=== PATIENT | female | born 1960 | race Caucasian/White ===

== ENCOUNTER 2022-12-30 18:25 | Inpatient (IN) | payer OTHER ==
[~2022-12-30] VITALS: Ht 162.6 cm; Wt 90.7 kg
[2022-12-30 19:06] VITALS: BP 130/66
--- NOTE | 2022-12-30 19:13 | NUR ---
PATIENT WHEEL CHAIR ASSIST TO BED 06
[2022-12-30] MEDS ORDERED: cefTRIAXone 1,000 MG in DEXT 5% MINI-BAG PLUS 50 ML IV ONE (19:15)
[2022-12-30] MEDS ORDERED: NACL 0.9% 2,000 ML IV SCH (19:15)
--- NOTE | 2022-12-30 19:25 | NUR ---
Assumed care of pt. Pt sitting high-fowlers with no distress. Pt c/o syncopal episode x 2. C/O N/V AND FEVER. DENIES DIARRHEA. +HEMATOMA NOTED TO OCCIPITAL. PER PT, HEMATOMA IS FROM FALL. PT THINKS SHE MAY HAVE LOSS CONCIOUSNESS. A/O X 4. NO SOB OR C/O COUGH. PT C/O RLQ ABD PAIN. PT STATED, PAIN IS DUE TO HER FALL. FAMILY WITH PT AT .
--- NOTE | 2022-12-30 19:54 | NUR ---
Dr. Vaughn examining patient.
[2022-12-30] MEDS ORDERED: MORPHINE SULFATE 4 MG/ML SYR IVP ONE (20:00)
--- NOTE | 2022-12-30 20:01 | NUR ---
CXR WAS DONE AT BS. COVID AND FLU A&B AND BLOOD LABS WITH CULTURES SENT. IV ACCESS WAS ESTABLISHED. EVALUATED PT AT BS. PT ATTEMPTED TO OBTAIN UA SAMPLE. PT ONLY ABLE TO PRODUCE A MINUTE AMOUT OF URINE.
[2022-12-30 20:11] LABS: HEMOGLOBIN 12.6 g/dL (12.0-16.0); MEAN CORPUSCULAR HEMOGLOBIN 29 pg (27-31); MEAN CORPUSCULAR HGB CONC 34 g/dL (33-37); MEAN CORPUSCULAR VOLUME 85.6 fL (80-94); PLATELET COUNT (AUTO) 237 K/uL (140-450); RED BLOOD CELL COUNT(AUTO) 4.33 MIL/uL (4.20-5.40); RED CELL DISTRIBUTION WIDTH 13.4 % (11.6-13.7); WHITE BLOOD COUNT (AUTO) 21.4 K/uL (4.8-10.8)
--- NOTE | 2022-12-30 20:14 | NUR ---
POC URINE DIP PERFORMED. RESULTS WERE GIVEN TO
[2022-12-30] MEDS ORDERED: cefTRIAXone 1,000 MG VIAL ONE (20:17)
--- NOTE | 2022-12-30 20:18 | NUR ---
PT TAKEN TO RADIOLOGY
[2022-12-30 20:19] LABS: ALBUMIN 3.3 g/dL (3.4-5.0); ANION GAP 16.7 (8-16); CREATININE 1.1 mg/dL (0.6-1.3); POTASSIUM 3.7 mmol/L (3.5-5.1); TOTAL BILIRUBIN 1.1 mg/dL (0.0-1.0)
--- NOTE | 2022-12-30 20:19 | NUR ---
PT TAKEN OFF UNIT TO CT. WILL MEDICATE PT WHEN THE PT RETURNS.
[2022-12-30 20:39] LABS: BASOPHILS % (MANUAL) 0 % (0-2); EOSINOPHILS % (MANUAL) 0 % (0-4); LYMPHOCYTES % (MANUAL) 12 % (20-46); MONOCYTES % (MANUAL) 10 % (5-12)
--- NOTE | 2022-12-30 20:39 | NUR ---
PT RETURN FROM RADIOLOGY
--- NOTE | 2022-12-30 21:15 | NUR ---
PT SLEEPING WITHOUT DISTRESS. MD TO ADMIT PT DUE TO SYNCOPAL EPISODES AND UTI. PT CURRENTLY AWAITING BED ADMISSION/BED ASSIGNMENT.
[2022-12-30] MEDS ORDERED: NACL 0.9% 1,000 ML IV ONE (21:20)
[2022-12-30] MEDS ORDERED: ONDANSETRON 4 MG/2 ML VIAL IVP PRN (21:20)
--- NOTE | 2022-12-30 21:30 | NUR ---
INFORMED PT THAT SHE WOULD BE ADMITTED. HE INFORMED HER THAT SHE HAS A FRACTURE ON HER COCCYX THAT SHOULD HEAL.
--- NOTE | 2022-12-30 21:38 | NUR ---
CALLED REPORT TO CAROLE. PT TO GO TO ROOM 108-B. COMPLETE REPORT PROVIDED. PT IN STATUS STABLE.
--- NOTE | 2022-12-30 21:48 | NUR ---
PT TAKEN TO THE FLOOR BY NICANOR ESCORTED BY RN AND EMT. PT TAKEN IN STABLE CONDITION. ACLS PROTOCOL IN PLACE.
[2022-12-30 22:00] VITALS: BP 147/60
--- NOTE | 2022-12-30 22:30 | NUR ---
RECEIVED REPORT FROM ER NURSE SUDHEER FOR CONTINUITY OF CARE. PATIENT IS A&O X4. PATIENT IS ON NC 2L, BREATHING IS NORMAL WITH SYMMETRICAL RISE AND FALL OF CHEST. IV IS A 20G R HAND, RUNNING NS AT 100. PATIENT ARRIVED ON UNIT AND AMBULATED WITH ASSISTANCE TO BATHROOM; GAIT IS UNSTEADY. PATIENT IS SITTING IN HIGH-FOWLERS POSITION. BED IS IN LOWEST POSITION, WHEELS LOCKED, CALL LIGHT IN PLACE. WILL CONTINUE TO OBSERVE PATIENT.
[2022-12-30 22:40] LABS: APPEARANCE,URINE CLEAR (CLEAR); BILIRUBIN,URINE NEGATIVE (NEGATIVE); BLOOD, URINE TRACE-I (NEGATIVE); COLOR,URINE YELLOW (YELLOW); LEUKOCYTE ESTERASE ,URINE NEGATIVE (NEGATIVE); NITRITE, URINE POSITIVE (NEGATIVE); UGLUCOSE 3+ (NEGATIVE)
[2022-12-30 22:43] LABS: RBC,URINE 11-20 (MOD) /HPF (0-5)
[2022-12-30] MEDS ORDERED: INSULIN LISPRO SLIDING SCALE 100 UNITS/ML VIAL SUBQ PRN (23:10)
--- NOTE | 2022-12-31 02:00 | NUR ---
PATIENT WAS COOPERATIVE DURING ADMISSION. PATIENT HAS CALLED FOR ASSISTANCE TO GO TO THE BATHROOM TWICE SINCE ADMISSION. TOOK PHOTO OF HEMATOMA ON POSTERIOR SIDE OF HEAD. PATIENT IS RESTING COMFORTABLE; LYING IN SEMI-FOWLERS POSITION. WILL CONTINUE TO OBSERVE PATIENT.
[2022-12-31 04:00] VITALS: BP 131/39
[2022-12-31] MEDS: HYDROcodone/APAP 5/325 MG 1 TAB TAB PO PRN ×3 (04:03→19:54)
--- NOTE | 2022-12-31 05:15 | NUR ---
PATIENT WAS ASSISTED TO BATHROOM AGAIN, AND STATED SHE WAS FEELING A LOT OF PAIN. ASKED PATIENT IF SHE NEEDED ANY PAIN MEDICATION. PATIENT STATED YES. PATIENT STATED HER PAIN WAS 6/10. CHECKED PATIENT'S VITALS AND CHART; NORCO WAS APPROPRIATE TO ADMINISTER. MEDICATION ADMINISTERED SUCCESSFULLY WITHOUT ANY ISSUES WITH SWALLOWING. REASSESSED PATIENT 30 MINUTES LATER; PATIENT WAS SLEEPING. WILL CONTINUE TO OBSERVE PATIENT.
[2022-12-31 06:52] LABS: BASOPHILS % (AUTO) 0.1 % (0.0-2.0); EOSINOPHILS % (AUTO) 0.1 % (0.0-4.0); HEMATOCRIT 34.7 % (36-48); HEMOGLOBIN 11.7 g/dL (12.0-16.0); LYMPHOCYTES # (AUTO) 2.3 K/uL (2.5-16.5); LYMPHOCYTES % (AUTO) 11.2 % (20.5-51.1); MEAN CORPUSCULAR HEMOGLOBIN 29 pg (27-31); MEAN CORPUSCULAR HGB CONC 34 g/dL (33-37); MEAN CORPUSCULAR VOLUME 85.9 fL (80-94); MONOCYTES # (AUTO) 1.5 K/uL (0.8-1.0); MONOCYTES % (AUTO) 7.4 % (1.7-9.3); NEUTROPHILS # (AUTO) 16.4 K/uL (1.8-7.7); NEUTROPHILS % (AUTO) 81.2 % (42.2-75.2); PLATELET COUNT (AUTO) 216 K/uL (140-450); RED BLOOD CELL COUNT(AUTO) 4.05 MIL/uL (4.20-5.40); RED CELL DISTRIBUTION WIDTH 13.6 % (11.6-13.7); WHITE BLOOD COUNT (AUTO) 20.1 K/uL (4.8-10.8)
--- NOTE | 2022-12-31 07:28 | NUR ---
ENDORSED TO DAY SHIFT NURSE DYLON FOR CONTINUITY OF CARE. PATIENT IS STABLE.
[2022-12-31] MEDS ORDERED: BLOOD GLUCOSE MONITORING 1 DEV DEV FS SCH (07:30)
--- NOTE | 2022-12-31 07:40 | NUR ---
GOT REPORT FROM THE NIGHT NURSE, PT AWAKE DISCUSSED POC. [id number]
[2022-12-31 08:00] VITALS: BP 126/60
[2022-12-31] MEDS ORDERED: DEXTROSE 50% 50 ML SYR IVP PRN (08:10)
[2022-12-31] MEDS: INSULIN LANTUS 100 UNITS/ML 10 ML VIAL SUBQ SCH (08:24)
[2022-12-31] MEDS: ENOXAPARIN 40 MG/0.4 ML SYR SUBQ SCH (08:25)
[2022-12-31 08:26] LABS: ANION GAP 15.5 (8-16); CARBON DIOXIDE 24.1 mmol/L (21-32); CREATININE 0.9 mg/dL (0.6-1.3); POTASSIUM 3.6 mmol/L (3.5-5.1)
--- NOTE | 2022-12-31 08:51 | NUR ---
PATIENT HAS BEEN SCREENED AND CATEGORIZED HIGH NUTRITION RISK. PATIENT WILL BE SEEN WITHIN 1-2 DAYS OF ADMISSION. 12/31/22-01/01/[address]
--- NOTE | 2022-12-31 08:54 | NUR ---
[facility] REFERRAL RECEIVED FOR UNCONTROLLED DIABETES ON 12/31/22. PATIENT WILL BE SEEN WITHIN 1-2 DAYS OF ADMISSION.
[2022-12-31] MEDS: INSULIN LISPRO SLIDING SCALE 100 UNITS/ML VIAL SUBQ PRN ×3 (11:55→20:06)
[2022-12-31] MEDS: BLOOD GLUCOSE MONITORING 1 DEV DEV FS SCH ×3 (11:58→20:14)
[2022-12-31 12:00] VITALS: BP 107/55
[2022-12-31] MEDS: INSULIN LISPRO 100 UNITS/ML VIAL SUBQ SCH ×2 (12:00→16:45)
--- NOTE | 2022-12-31 14:27 | NUR ---
ADMINISTERED PAIN MEDICATION FOR SEVERE PAIN 9/10 ON LOWER BACK RADIATING TO LEFT HIP.
--- NOTE | 2022-12-31 14:47 | NUR ---
12/31/22 RD INITIAL ASSESSMENT COMPLETED PLEASE REFER TO NUTRITION ASSESSMENT UNDER CARE ACTIVITY FOR ESTIMATED NUTRITIONAL NEEDS. 1. CONTINUE [facility] DIET TOLERATED AND WILL ADD SOFT TEXTURE TO MEALS PER PATIENT REQUEST. 2. RD ENCOURAGES PATIENT TO CONTINUE WITH WATCHING PORTION SIZES AND TO FOLLOW DIABETES HANDOUTS GIVEN ONCE SHE LEAVES THE HOSPITAL. 3. RD TO FOLLOW-UP 7 DAYS, LOW RISK JEFFERY TAPIA RD
[2022-12-31 16:00] VITALS: BP 104/44
--- NOTE | 2022-12-31 19:23 | NUR ---
got report to the night nurse,pt talking to the family visitors.[email or web address]
--- NOTE | 2022-12-31 19:30 | NUR ---
RECEIVED REPORT FROM DAY RN FOR CONTINUITY OF CARE. PT IS AWAKE, ALERT AND ORIENTED X 4, PT ON 2L NC. O2 SAT AT 98%. BREATHING EVEN AND UNLABORED, NO S/SX OF RESPIRATORY DISTRESS. ALL PRECAUTIONS IN PLACE. CALL LIGHT WITHIN REACH. POC DISCUSSED.WILL CONTINUE TO MONITOR.
[2022-12-31 20:00] VITALS: BP 132/57
--- NOTE | 2022-12-31 21:00 | NUR ---
BLOOD SUGAR WAS 286. INSULIN COVERAGE GIVEN.
[2023-01-01] VITALS: BP 128/41
--- NOTE | 2023-01-01 01:10 | NUR ---
Iv was pulled out. Restarted on R HAND. Successful after 1 attempts. Resumed current IVF of NS and regulated @ 100 per hour. Will observe for any signs of infiltration.
--- NOTE | 2023-01-01 02:30 | NUR ---
PT ASLEEP. BREATHING EVEN AND UNLABORED.NO S/SX OF DISTRESS NOTED. LISA LIGHT WITHIN REACH. WILL CONTINUE TO MONITOR.
[2023-01-01 04:00] VITALS: BP 131/62
[2023-01-01] MEDS: BLOOD GLUCOSE MONITORING 1 DEV DEV FS SCH ×4 (05:59→21:11)
[2023-01-01] MEDS: INSULIN LISPRO SLIDING SCALE 100 UNITS/ML VIAL SUBQ PRN ×4 (05:59→21:09)
--- NOTE | 2023-01-01 06:23 | NUR ---
PT IS STABLE. NO ACUTE EVENTS THROUGHOUT THE NIGHT. ALL NEEDS MET.NO S/SX OF DISTRESS AT THIS MOMENT. ALL PRECAUTIONS IN PLACE. CALL LIGHT WITHIN REACH. WILL CONTINUE TO MONITOR.
[2023-01-01] MEDS: INSULIN LISPRO 100 UNITS/ML VIAL SUBQ SCH ×3 (06:33→17:18)
--- NOTE | 2023-01-01 06:36 | NUR ---
BLOOD SUGAR 267.INSULIN GIVEN PER SLIDING SCALE.
--- NOTE | 2023-01-01 07:05 | NUR ---
RECEIVED REPORT FROM NIGHT NURSE HAN FOR CONTINUITY OF CARE. ALERT AND ORIENTED X 4. RESP. EVEN AND UNLABORED. IVF INFUSING WELL. NO C/O PAIN OR DISCOMFORT. CALL LIGHT KEPT WITHIN REACH. PT WILL MONITOR CLOSELY.
[2023-01-01 07:11] LABS: BASOPHILS % (AUTO) 0.2 % (0.0-2.0); EOSINOPHILS # (AUTO) 0.1 K/uL (0-0.4); EOSINOPHILS % (AUTO) 0.3 % (0.0-4.0); HEMATOCRIT 33.7 % (36-48); HEMOGLOBIN 11.3 g/dL (12.0-16.0); LYMPHOCYTES # (AUTO) 1.9 K/uL (2.5-16.5); LYMPHOCYTES % (AUTO) 10.7 % (20.5-51.1); MEAN CORPUSCULAR HEMOGLOBIN 29 pg (27-31); MEAN CORPUSCULAR HGB CONC 33 g/dL (33-37); MEAN CORPUSCULAR VOLUME 86.4 fL (80-94); MONOCYTES # (AUTO) 0.8 K/uL (0.8-1.0); MONOCYTES % (AUTO) 4.5 % (1.7-9.3); NEUTROPHILS % (AUTO) 84.3 % (42.2-75.2); PLATELET COUNT (AUTO) 209 K/uL (140-450); RED CELL DISTRIBUTION WIDTH 13.4 % (11.6-13.7); WHITE BLOOD COUNT (AUTO) 17.8 K/uL (4.8-10.8)
[2023-01-01] MEDS: HYDROcodone/APAP 5/325 MG 1 TAB TAB PO PRN ×2 (07:26→21:02)
[2023-01-01 07:27] LABS: ANION GAP 14.3 (8-16); CARBON DIOXIDE 23.5 mmol/L (21-32); CREATININE 0.8 mg/dL (0.6-1.3); POTASSIUM 3.8 mmol/L (3.5-5.1)
[2023-01-01 08:00] VITALS: BP 110/41
[2023-01-01] MEDS: INSULIN LANTUS 100 UNITS/ML 10 ML VIAL SUBQ SCH (08:15)
--- NOTE | 2023-01-01 08:15 | NUR ---
SEEN BY DR. TOLLIVER
[2023-01-01] MEDS: ENOXAPARIN 40 MG/0.4 ML SYR SUBQ SCH (08:16)
--- NOTE | 2023-01-01 08:16 | NUR ---
LANTUS 12 UNITS SQ AND LOVENOX SQ WAS GIVEN. TOLERATED WELL.
--- NOTE | 2023-01-01 08:30 | NUR ---
Patient's Plan of Care was discussed and reviewed with HUMIDIFIER OPERATOR: []
--- NOTE | 2023-01-01 09:43 | NUR ---
ROCEPHIN IV WAS GIVEN BY RAMONA ALCOCER. TOLERATED WELL.
--- NOTE | 2023-01-01 11:53 | NUR ---
BS CHECKED 294. SCHEDULED HUMALOG 4 UNITS AND 6 UNITS HUMALOG PER SLIDING SCALE WAS GIVEN. TOLERATED WELL.
[2023-01-01 12:00] VITALS: BP 135/51
[2023-01-01 16:00] VITALS: BP 128/53
--- NOTE | 2023-01-01 17:18 | NUR ---
BS CHECKED 238. SCHEDULED HUMALOG 4 UNITS AND 4 UNITS OF INSULIN PER SLIDING SCALE. TOLERATED WELL.
--- NOTE | 2023-01-01 19:05 | NUR ---
BEDSIDE REPORT GIVEN TO AIRCRAFT PNEUDRAUL[employer] SYSTEMS MECHANIC FOR CONTINUITY OF CARE. REMAINS STABLE.
--- NOTE | 2023-01-01 19:10 | NUR ---
RECEIVED REPORT FROM DAY RN FOR CONTINUITY OF CARE. PT IS AWAKE, ALERT AND ORIENTED X 4, PT ON ROOM AIR, O2 SAT AT 98%. BREATHING EVEN AND UNLABORED, NO S/SX OF RESPIRATORY DISTRESS. ALL PRECAUTIONS IN PLACE. CALL LIGHT WITHIN REACH. POC DISCUSSED.WILL CONTINUE TO MONITOR.
[2023-01-01 20:00] VITALS: BP 145/65
[2023-01-02] VITALS: BP 139/68
--- NOTE | 2023-01-02 01:30 | NUR ---
PT ASLEEP. BREATHING EVEN AND UNLABORED.NO S/SX OF DISTRESS NOTED. LISA LIGHT WITHIN REACH. WILL CONTINUE TO MONITOR.
[2023-01-02 04:00] VITALS: BP 139/58
[2023-01-02] MEDS: BLOOD GLUCOSE MONITORING 1 DEV DEV FS SCH ×2 (05:56→11:50)
--- NOTE | 2023-01-02 06:30 | NUR ---
BLOOD SUGAR 226.INSULIN GIVEN PER SLIDING SCALE.
[2023-01-02] MEDS: INSULIN LISPRO 100 UNITS/ML VIAL SUBQ SCH ×2 (06:32→11:54)
[2023-01-02] MEDS: INSULIN LISPRO SLIDING SCALE 100 UNITS/ML VIAL SUBQ PRN ×2 (06:34→11:55)
[2023-01-02 06:57] LABS: BASOPHILS % (AUTO) 0.3 % (0.0-2.0); EOSINOPHILS # (AUTO) 0.1 K/uL (0-0.4); EOSINOPHILS % (AUTO) 1.2 % (0.0-4.0); HEMATOCRIT 34.5 % (36-48); HEMOGLOBIN 11.8 g/dL (12.0-16.0); LYMPHOCYTES # (AUTO) 2.4 K/uL (2.5-16.5); LYMPHOCYTES % (AUTO) 22.1 % (20.5-51.1); MEAN CORPUSCULAR HEMOGLOBIN 29 pg (27-31); MEAN CORPUSCULAR HGB CONC 34 g/dL (33-37); MEAN CORPUSCULAR VOLUME 85.4 fL (80-94); MONOCYTES # (AUTO) 0.7 K/uL (0.8-1.0); MONOCYTES % (AUTO) 6.7 % (1.7-9.3); NEUTROPHILS # (AUTO) 7.6 K/uL (1.8-7.7); NEUTROPHILS % (AUTO) 69.7 % (42.2-75.2); PLATELET COUNT (AUTO) 265 K/uL (140-450); RED BLOOD CELL COUNT(AUTO) 4.04 MIL/uL (4.20-5.40); RED CELL DISTRIBUTION WIDTH 13.3 % (11.6-13.7); WHITE BLOOD COUNT (AUTO) 10.9 K/uL (4.8-10.8)
--- NOTE | 2023-01-02 07:00 | NUR ---
RECEIVED REPORT FROM NIGHT NURSE HAN FOR CONTINUITY OF CARE. ALERT AND ORIENTED X 4. RESP. EVEN AND UNLABORED. IV SITE INTACT, ON SALINE LOCK. NO C/O PAIN OR DISCOMFORT. CALL LIGHT KEPT WITHIN REACH. PT WILL MONITOR CLOSELY.
[2023-01-02 07:15] LABS: ANION GAP 14.3 (8-16); CARBON DIOXIDE 23.4 mmol/L (21-32); CREATININE 0.7 mg/dL (0.6-1.3); POTASSIUM 3.7 mmol/L (3.5-5.1)
[2023-01-02 08:00] VITALS: BP 118/74
[2023-01-02] MEDS: INSULIN LANTUS 100 UNITS/ML 10 ML VIAL SUBQ SCH (08:35)
--- NOTE | 2023-01-02 08:35 | NUR ---
SCHEDULED LANTUS 12 UNITS SQ AND LOVENOX SQ WAS GIVEN. TOLERATED WELL.
[2023-01-02] MEDS: ENOXAPARIN 40 MG/0.4 ML SYR SUBQ SCH (08:38)
--- NOTE | 2023-01-02 10:46 | NUR ---
ROCEPHIN IV WAS GIVEN BY DYLON ALCOCER. TOLERATED WELL.
--- NOTE | 2023-01-02 11:16 | NUR ---
PT COMPLAINT OF CONSTIPATION, NO BOWEL MOVEMENT FOR [address] TOLLIVER NOTIFIED, WITH NEW ORDER DULCOLAX 5 MG PO ONCE. ORDER NOTED AND CARRIED OUT.
[2023-01-02] MEDS ORDERED: bisacodyL 5 MG TABEC PO ONE (11:20)
--- NOTE | 2023-01-02 11:54 | NUR ---
BS CHECKED 367. SCHEDULED HUMALOG 4 UNITS AND 10 UNITS OF HUMALOG PER SLIDING SCALE WAS GIVEN. TOLERATED WELL.
--- NOTE | 2023-01-02 11:56 | NUR ---
BISACODYL PO ONCE GIVEN. TOLERATED WELL.
[2023-01-02] MEDS ORDERED: METF-346 PO (12:02)
[2023-01-02] MEDS ORDERED: CEPH500C16 PO (12:03)
[2023-01-02] MEDS ORDERED: IBUP-1842 PO (12:04)
[2023-01-02] MEDS: HYDROcodone/APAP 5/325 MG 1 TAB TAB PO PRN (13:15)
--- NOTE | 2023-01-02 13:15 | NUR ---
PRN NORCO 2 TABLETS WAS GIVEN FOR PAIN MANAGEMENT. TOLERATED WELL.
--- NOTE | 2023-01-02 13:45 | NUR ---
PT LEFT. DISCHARGE TO HOME. TRANSPORTED BY PRIVATE CAR PER WHEELCHAIR. ALERT AND ORIENTED X 4. RESP. EVEN AND UNLABORED. SKIN INTACT. ID BAND AND IV REMOVED. DISCHARGED PAPERWORK SIGNED AND DISCUSS BY PT. NO C/O PAIN OR DISCOMFORT. REMAINS STABLE.
== END 2023-01-02 13:46 | disposition home or self-care (01) | DRG 872 ==
LOC: MED 18:25 → MTU 21:20
PROVIDERS: ADMIT Internal Medicine; ATTEND Internal Medicine
DX: A41.9 Sepsis, unspecified organism (principal); N39.0 Urinary tract infection, site not specified; E87.1 Hypo-osmolality and hyponatremia; E86.0 Dehydration; I95.1 Orthostatic hypotension; Z20.822 Contact with and (suspected) exposure to COVID-19; R65.20 Severe sepsis without septic shock; E11.9 Type 2 diabetes mellitus without complications; Z88.8 Allergy status to other drugs, medicaments and biological substances; Z79.899 Other long term (current) drug therapy; Z90.49 Acquired absence of other specified parts of digestive tract
CPT/HCPCS: 36415; 70450; 71045; 72220; 80048; 80053; 81001; 82948; 83605; 83735; 83880; 84484; 85025; 87040; 87081; 87086; 93005; 96365; 96375; 99285; J0696; J1650; J1815; J2270; J7060